=== PATIENT | male | born 1950 | race Caucasian/White ===

== ENCOUNTER → 2018-05-15 | Outpatient (CLI) | payer OTHER ==
[~2018-05-15] MED LIST: AMLO10 PO; ATOR40TA PO; Augmentin 875-1 EACH PO; BUSP10 PO; CITA20 PO; CYCL10 PO; D3-20002000 UNIT PO; DICL25ER PO; FISH OIL 1,0001 EAC1 PO; GABA300 PO; HYDCHL25 PO; INSULANPEN SC; LO-DOSE ASPIRIN81 MG PO; Lopressor 25 mg25 MG PO; METF500 PO; METO25 PO; OMEPRAZOLE20 MG PO; SACC250C PO; ZESTRIL40 MG PO
== END | disposition home or self-care (01) ==
LOC: LAB 14:15 → LAB SHORT 14:15
DX: L03.113 Cellulitis of right upper limb (principal)
CPT/HCPCS: 87070; 87075; 87205

== ENCOUNTER 2018-05-17 08:43 | Inpatient (IN) | payer OTHER ==
[~2018-05-17] VITALS: Ht 172.7 cm; Wt 97.8 kg
[2018-05-17 09:44] LABS: BASOPHILS ABSOLUTE AUTO 0.09 K/mm3 (0.00-0.23); BASOPHILS PERCENT AUTO 0 % (0-2); EOSINOPHILS ABSOLUTE AUTO 0.06 K/mm3 (0.00-0.68); EOSINOPHILS PERCENT AUTO 0 % (0-6); Hematocrit 29.2 % (37.0-53.0); Hemoglobin 9.5 g/dL (13.5-17.5); IMMATURE GRAN ABSOLUTE AUTO 0.64 K/mm3 (0.00-0.10); IMMATURE GRAN PERCENT AUTO 2 % (0-1); LYMPHOCYTES PERCENT AUTO 9 % (21-46); MONOCYTES ABSOLUTE AUTO 1.44 K/mm3 (0.16-1.47); MONOCYTES PERCENT AUTO 5 % (4-13); Mean Corpuscular HGB 24.7 pg (26.0-34.0); Mean Corpuscular HGB Conc 32.5 g/dL (31.5-36.5); Mean Corpuscular Volume 76 fL (80-100); Mean Platelet Volume 10.4 fL (9.1-12.4); NEUTROPHILS ABSOLUTE AUTO 24.17 K/mm3 (1.96-9.15); NEUTROPHILS PERCENT AUTO 83 % (41-73); Platelet Count 414 K/mm3 (150-400); RDW Coefficient Variation 16.9 % (11.7-14.2); RDW Standard Deviation 45.3 fL (35.1-46.3); Red Blood Cell Count 3.85 M/mm3 (4.30-5.90)
[2018-05-17 10:07] LABS: Alanine Aminotransfer (ALT/SGP 66 U/L (12-78); Albumin, Blood 2.2 g/dL (3.4-5.0); Albumin/Globulin Ratio 0.4 (0.8-1.8); Alk Phos 339 U/L (50-136); Anion Gap 11 mmol/L (6-16); Aspartate Aminotrans (AST/SGOT 41 U/L (12-37); Bilirubin, Total 0.6 mg/dL (0.1-1.0); Blood Urea Nitrogen 25 mg/dL (8-24); Bun/Creatinine Ratio 24.3 (12.0-20.0); CO2, Blood 22 mmol/L (21-32); Calcium, Blood 8.9 mg/dL (8.5-10.1); Chloride, Blood 100 mmol/L (98-108); Creatinine, Blood 1.03 mg/dL (0.60-1.20); Globulin, Blood 5.8 g/dL (2.2-4.0); Glomerular Filtration Rate >60 (60-); Glucose, Blood 194 mg/dL (70-99); Potassium, Blood 3.8 mmol/L (3.5-5.5); Sodium, Blood 133 mmol/L (136-145)
[2018-05-17] MEDS ORDERED: CYCL10 PO ×2 (10:35)
[2018-05-17] MEDS ORDERED: DICL25ER PO ×2 (10:35)
[2018-05-17] MEDS ORDERED: METF500 PO ×2 (11:02)
[2018-05-17] MEDS ORDERED: ATOR40TA PO ×2 (11:03)
[2018-05-17] MEDS ORDERED: Lopressor 25 mg25 MG PO ×2 (11:03)
[2018-05-17] MEDS ORDERED: CITA20 PO ×2 (11:04)
[2018-05-17] MEDS ORDERED: BUSP10 PO ×2 (11:04)
[2018-05-17] MEDS ORDERED: HYDCHL25 PO ×2 (11:04)
[2018-05-17] MEDS ORDERED: GABA300 PO ×4 (11:04→12:00)
[2018-05-17] MEDS ORDERED: ZESTRIL40 MG PO ×2 (11:05)
[2018-05-17] MEDS ORDERED: AMLO10 PO ×2 (11:05)
[2018-05-17] MEDS ORDERED: OMEPRAZOLE20 MG PO ×2 (11:05)
[2018-05-17] MEDS ORDERED: D3-20002000 UNIT PO ×2 (11:06)
[2018-05-17] MEDS ORDERED: METO25 PO ×2 (11:58)
[2018-05-17 12:22] LABS: Body Fluid Crystals NEG (NEGATIVE)
[2018-05-17] MEDS ORDERED: FISH OIL 1,0001 EAC1 PO ×2 (12:27)
[2018-05-17] MEDS ORDERED: LO-DOSE ASPIRIN81 MG PO ×2 (12:27)
[2018-05-17] MEDS ORDERED: INSULANPEN SC ×2 (12:28)
[2018-05-17 12:30] LABS: Appearance, Synovial Fluid Cloudy (Clear); Color, Synovial Fluid Dark Yellow (None-P Yel)
[2018-05-17 12:31] LABS: RBC Count, Synovial Fluid 4100 /mm3 (0-0)
[2018-05-17 12:34] LABS: WBC Count, Synovial Fluid 37300 /mm3 (0-180)
[2018-05-17 12:57] LABS: Lymphs, Synovial Fluid 9 % (0-15); Monocytes/Macrophages, Synovia 3 % (0-65); Neutrophils, Synovial Fluid 88 % (0-24)
--- NOTE | 2018-05-17 13:25 | NUR ---
REPORT FROM IGNACIO AYALA IN ER.
--- NOTE | 2018-05-17 13:45 | NUR ---
ER STAFF AWARE THAT ROOM IS READY. MAY SEND PT.
--- NOTE | 2018-05-17 14:13 | NUR ---
PT TO ROOM 336 VIA GURNEY. PT ARRIVES TO UNIT ALERT AND ORIENTED. ABX INFUSING W/O ISSUE. PT DENIES PAIN AT THIS TIME. ORIENTED PT TO ROOM AND CALL LIGHT.
--- NOTE | 2018-05-17 15:08 | NUR ---
PT MEDICATED PER EMAR. IVF STARTED. ZOSYN STARTED. PT C/O PAIN, WILL MEDICATE WITH PRN.
--- NOTE | 2018-05-17 16:15 | NUR ---
PT APPEARS TO BE SLEEPING, NADN. RESP EVEN AND NON LABORED.
--- NOTE | 2018-05-17 17:30 | NUR ---
PT MEDICATED PER EMAR. CHANGED PT INTO GOWN. ADJUSTED PT THERMOSTAT. DENIES PAIN.
--- NOTE | 2018-05-17 17:48 | NUR ---
DINNER TRAY PROVIDED TO PT. PT SITTING UP IN BED EATING AND WATCHING TV.
--- NOTE | 2018-05-17 19:08 | NUR ---
REPORT TO YEYO AYALA.
--- NOTE | 2018-05-18 05:23 | NUR ---
*SHIFT SUMMARY* PT IS ALERT AND ORIENTED. ON ROOM AIR. PATIENT IS RECIEVING NORMAL SALINE AT 75ML/HR. PATIENT INDEPENDENT IN ROOM, USES URINAL AT NIGHT. USES CALL LIGHT APPROPRIATELY. PT DENIES HAVING PAIN DURING SHIFT. RIGHT ARM ELEVATED ON PILLOW. ICE PACK ON TO HELP COOL PT. PLAN IS FOR ORTHO TO CHECK ON PT AND EVALUATE IF HE NEEDS TO HAVE SURGICAL INTERVENTION. PT HAS BEEN NPO SINCE MIDNIGHT.
[2018-05-18 05:43] LABS: BASOPHILS ABSOLUTE AUTO 0.06 K/mm3 (0.00-0.23); BASOPHILS PERCENT AUTO 0 % (0-2); EOSINOPHILS ABSOLUTE AUTO 0.09 K/mm3 (0.00-0.68); EOSINOPHILS PERCENT AUTO 0 % (0-6); Hematocrit 28.2 % (37.0-53.0); IMMATURE GRAN ABSOLUTE AUTO 0.23 K/mm3 (0.00-0.10); IMMATURE GRAN PERCENT AUTO 1 % (0-1); LYMPHOCYTES ABSOLUTE AUTO 2.56 K/mm3 (0.84-5.20); LYMPHOCYTES PERCENT AUTO 13 % (21-46); MONOCYTES ABSOLUTE AUTO 1.01 K/mm3 (0.16-1.47); MONOCYTES PERCENT AUTO 5 % (4-13); Mean Corpuscular HGB 24.6 pg (26.0-34.0); Mean Corpuscular HGB Conc 31.9 g/dL (31.5-36.5); Mean Corpuscular Volume 77 fL (80-100); Mean Platelet Volume 10.2 fL (9.1-12.4); NEUTROPHILS ABSOLUTE AUTO 16.23 K/mm3 (1.96-9.15); NEUTROPHILS PERCENT AUTO 81 % (41-73); Platelet Count 371 K/mm3 (150-400); RDW Coefficient Variation 16.6 % (11.7-14.2); RDW Standard Deviation 46.5 fL (35.1-46.3); Red Blood Cell Count 3.66 M/mm3 (4.30-5.90); White Blood Cell Count 20.18 K/mm3 (4.00-11.30)
[2018-05-18 06:07] LABS: Alanine Aminotransfer (ALT/SGP 51 U/L (12-78); Albumin, Blood 1.9 g/dL (3.4-5.0); Albumin/Globulin Ratio 0.4 (0.8-1.8); Alk Phos 283 U/L (50-136); Anion Gap 7 mmol/L (6-16); Aspartate Aminotrans (AST/SGOT 41 U/L (12-37); Bilirubin, Total 0.7 mg/dL (0.1-1.0); Blood Urea Nitrogen 22 mg/dL (8-24); Bun/Creatinine Ratio 22.1 (12.0-20.0); CO2, Blood 26 mmol/L (21-32); Calcium, Blood 8.6 mg/dL (8.5-10.1); Chloride, Blood 105 mmol/L (98-108); Globulin, Blood 4.9 g/dL (2.2-4.0); Glomerular Filtration Rate >60 (60-); Glucose, Blood 179 mg/dL (70-99); Potassium, Blood 3.6 mmol/L (3.5-5.5); Sodium, Blood 138 mmol/L (136-145); Total Protein, Blood 6.8 g/dL (6.4-8.2)
--- NOTE | 2018-05-18 18:18 | NUR ---
HE HAS KEPT HIS R ARM ELEVATED ON 2 PILLOWS ALL DAY. HE HAS USED THE ICE PACK OFF AND ON ALL DAY. HE TOOK A DEEP NAP 1/2 THE AFTERNOON. TORADOL WAS GIVEN X1 WITH RELIEF OF PAIN. HE HAS REDNESS IN HIS R ELBOW AND UPPER ARM. VSS.TEDS ON. SLIDING SCALE INSULIN STARTED AT DINNER FOR CBG'S GREATER THAN 150. WBC'S CAME DOWN TODAY. HE IS WITHIN THE FLUID RESTRICTION.
--- NOTE | 2018-05-19 04:44 | NUR ---
SHIFT SUMMARY PT HAD BM DURING THE NIGHT, SLEPT WELL. IV VANCO TROUGH 19 SO 0100 IV VANCO HELD PER PHARMACY AND DOSE ADJUSTED. NO ACUTE EVENTS NOTED DURING THE NIGHT, WILL CONTINUE TO MONITOR.
[2018-05-19 06:29] LABS: BASOPHILS ABSOLUTE AUTO 0.07 K/mm3 (0.00-0.23); BASOPHILS PERCENT AUTO 0 % (0-2); EOSINOPHILS ABSOLUTE AUTO 0.07 K/mm3 (0.00-0.68); EOSINOPHILS PERCENT AUTO 0 % (0-6); Hematocrit 28.5 % (37.0-53.0); IMMATURE GRAN ABSOLUTE AUTO 0.17 K/mm3 (0.00-0.10); IMMATURE GRAN PERCENT AUTO 1 % (0-1); LYMPHOCYTES PERCENT AUTO 13 % (21-46); MONOCYTES ABSOLUTE AUTO 0.79 K/mm3 (0.16-1.47); MONOCYTES PERCENT AUTO 4 % (4-13); Mean Corpuscular HGB 24.6 pg (26.0-34.0); Mean Corpuscular HGB Conc 31.6 g/dL (31.5-36.5); Mean Corpuscular Volume 78 fL (80-100); Mean Platelet Volume 11.1 fL (9.1-12.4); NEUTROPHILS ABSOLUTE AUTO 14.86 K/mm3 (1.96-9.15); NEUTROPHILS PERCENT AUTO 81 % (41-73); Platelet Count 442 K/mm3 (150-400); RDW Coefficient Variation 16.9 % (11.7-14.2); RDW Standard Deviation 47.5 fL (35.1-46.3); Red Blood Cell Count 3.66 M/mm3 (4.30-5.90); White Blood Cell Count 18.36 K/mm3 (4.00-11.30)
[2018-05-19 07:00] LABS: Albumin, Blood 2.1 g/dL (3.4-5.0); Anion Gap 9 mmol/L (6-16); Blood Urea Nitrogen 29 mg/dL (8-24); Bun/Creatinine Ratio 28.2 (12.0-20.0); CO2, Blood 24 mmol/L (21-32); Calcium, Blood 8.7 mg/dL (8.5-10.1); Chloride, Blood 107 mmol/L (98-108); Creatinine, Blood 1.03 mg/dL (0.60-1.20); Glomerular Filtration Rate >60 (60-); Glucose, Blood 129 mg/dL (70-99); Phosphorus, Blood 2.8 mg/dL (2.5-4.9); Potassium, Blood 3.9 mmol/L (3.5-5.5); Sodium, Blood 140 mmol/L (136-145)
--- NOTE | 2018-05-19 16:01 | NUR ---
PATIENT A/OX4, UP INDEPENDENTLY IN HIS ROOM. REPORTS PORFIRIO HAS DECREASED IN R ARM AND REDNESS AND SWELLING CONTINUE TO IMPROVE. 20G IV TO L HAND WNL AND SL. ROCEPHIN DAILY TO TREAT CELLULITIS. PATIENT IS HOPING TO GO [place] IN AM. NO ACUTE CHANGES THIS SHIFT.
--- NOTE | 2018-05-20 05:13 | NUR ---
SHIFT SUMMARY PT HAS SLEPT WELL T/O NIGHT, RECEIVED IV TORADOL FOR PAIN AT HS. NO ACUTE EVENTS NOTED DURING THE NIGHT, WILL CONTINUE TO MONITOR.
[2018-05-20 05:49] LABS: BASOPHILS ABSOLUTE AUTO 0.05 K/mm3 (0.00-0.23); BASOPHILS PERCENT AUTO 0 % (0-2); EOSINOPHILS ABSOLUTE AUTO 0.15 K/mm3 (0.00-0.68); EOSINOPHILS PERCENT AUTO 1 % (0-6); Hematocrit 30.1 % (37.0-53.0); Hemoglobin 9.3 g/dL (13.5-17.5); IMMATURE GRAN ABSOLUTE AUTO 0.13 K/mm3 (0.00-0.10); IMMATURE GRAN PERCENT AUTO 1 % (0-1); LYMPHOCYTES ABSOLUTE AUTO 2.26 K/mm3 (0.84-5.20); LYMPHOCYTES PERCENT AUTO 17 % (21-46); MONOCYTES ABSOLUTE AUTO 0.78 K/mm3 (0.16-1.47); MONOCYTES PERCENT AUTO 6 % (4-13); Mean Corpuscular HGB 24.2 pg (26.0-34.0); Mean Corpuscular HGB Conc 30.9 g/dL (31.5-36.5); Mean Corpuscular Volume 78 fL (80-100); Mean Platelet Volume 10.5 fL (9.1-12.4); NEUTROPHILS ABSOLUTE AUTO 9.74 K/mm3 (1.96-9.15); NEUTROPHILS PERCENT AUTO 74 % (41-73); Platelet Count 431 K/mm3 (150-400); RDW Coefficient Variation 17.1 % (11.7-14.2); RDW Standard Deviation 47.8 fL (35.1-46.3); Red Blood Cell Count 3.84 M/mm3 (4.30-5.90); White Blood Cell Count 13.11 K/mm3 (4.00-11.30)
[2018-05-20] MEDS ORDERED: SACC250C PO ×2 (14:34)
[2018-05-20] MEDS ORDERED: Augmentin 875-1 EACH PO ×2 (14:35)
--- NOTE | 2018-05-20 15:03 | NUR ---
PT DISCHARGED AT 1450 WITH TO TRANSPORT. AOX4 AND COOPERATIVE OF ALL CARE. INDEPEDENT IN ROOM APPEARED READY TO GO HOME. APPOINTMENT ATTEMPTED TO BE SCHEDULED AT [place] FOR [place]CP, [place] STATED THEY WOULD CALL PT TO SCHEDULE APPOINTMENT. CALLED DR STINSON'S OFFICE AND THEY STATED THEY WOULD CALL AND SCHEDULE APPOINTMENT WITH PT. ALL PAPERWORK REVEIWED AND SIGNED EDUATIONAL MATERIAL SENT WITH PT. PT ESCORTED VIA WHEELCHAIR BY THIS MOTHERCRAFT NURSE.
== END 2018-05-20 15:03 | disposition home or self-care (01) | DRG 603 ==
LOC: ER 08:43 → MEDS 11:39 → ERHOLD 11:39 → MEDS 13:30
PROVIDERS: Emergency Medicine; Family Medicine; ADMIT Family Medicine
PROC: 0R9L3ZX Drainage of Right Elbow Joint, Percutaneous Approach, Diagnostic (ICD-10-PCS; principal; 2018-05-17)
DX: L03.113 Cellulitis of right upper limb (principal); E87.1 Hypo-osmolality and hyponatremia; M70.31 Other bursitis of elbow, right elbow; E11.9 Type 2 diabetes mellitus without complications; Z79.4 Long term (current) use of insulin; I10 Essential (primary) hypertension; I25.10 Atherosclerotic heart disease of native coronary artery without angina pectoris; E78.5 Hyperlipidemia, unspecified; F32.9 Major depressive disorder, single episode, unspecified; F41.9 Anxiety disorder, unspecified; D63.8 Anemia in other chronic diseases classified elsewhere; J44.9 Chronic obstructive pulmonary disease, unspecified; B95.61 Methicillin susceptible Staphylococcus aureus infection as the cause of diseases classified elsewhere; I25.2 Old myocardial infarction; F17.210 Nicotine dependence, cigarettes, uncomplicated; W19.XXXA Unspecified fall, initial encounter
CPT/HCPCS: 20606; 36415; 80053; 80069; 80202; 82947; 83605; 85025; 87070; 87075; 87077; 87147; 87186; 87205; 89051; 89060; 94760; 96365-59; 96375-59; 99285-25; J0690; J0696; J1644; J1815; J1885; J2270; J2543; J3370; J7030; J7050

== ENCOUNTER 2021-04-27 16:55 | Inpatient (IN) | payer OTHER ==
[~2021-04-27] VITALS: Ht 175.3 cm; Wt 83.2 kg
[~2021-04-27 16:55] MED LIST changes: +ASPIR 8181 M1 PO; -D3-20002000 UNIT PO; -FISH OIL 1,0001 EAC1 PO; -LO-DOSE ASPIRIN81 MG PO; +OMEGA-3 FISH O1 EA13 PO; +THERA-D2000 UNIT PO
[2021-04-27 18:14] LABS: Influenza A, PCR NEGATIVE (NEGATIVE); Influenza B, PCR NEGATIVE (NEGATIVE); Resp Syncytial Virus, PCR NEGATIVE (NEGATIVE); SARS-Cov-2 (COVID-19) PCR, MMC NEGATIVE (NEGATIVE)
--- NOTE | 2021-04-28 00:29 | NUR ---
PATIENT IS A NEW ADMIT FROM THE ED. AXOX 4 AND SELF TRANSFER FROM [facility] TO BED. ON ROOM AIR. IV VANCO INFUSING FROM THE ED. CBG 274. REPORTS NO TEETH AND ABDOMINAL HERNIA. SCATTER SCABS ON FEET/TOES. FEET N/T WITH HX T2DM. CEDS ONE 1/2 PACK/DAY X 50 YEARS. ABSCESS BACK OF NECK WITH BANDAGE IN PLACE FROM DRAINED IN ED. REPORTS CHRONIC LEFT HIP PAIN AND ABSCESS JUST SORE. ORIENTED TO ROOM AND CALL LIGHT SYSTEM. REPORTS WANTS TO SLEEP AFTER ASSESSMENT. CALL LIGHT IN REACH.
[2021-04-28] MEDS ORDERED: CEPH500 PO (00:44)
[2021-04-28] MEDS ORDERED: ZYRTEC10 M2 PO (00:45)
[2021-04-28] MEDS ORDERED: DULO30 PO (00:45)
[2021-04-28] MEDS ORDERED: GUAI600T33 PO (00:46)
[2021-04-28] MEDS ORDERED: TRAM50 PO (00:49)
--- NOTE | 2021-04-28 04:20 | NUR ---
SHIFT SUMMARY PATIENT HAD NO ACUTE CHANGES. AXO X 4 AND SBA W/FWW TO BR. ON ROOM AIR. CBG 279. PIV REMAINS INTACT. IV ABX INFUSED. VSS/AFEBRILE. REPORTED BACK PAIN AND ULTRAM 50 MG GIVEN PER EMAR. DENIES SOB AND N/V. USES URINAL AT BEDSIDE. 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 ABDOMINAL HERNIA. SCABS ON TOES. REPORTS ABSCESS ON BACK OF NECK IS JUST SORE. LIVES WITH IN A TRAILER ON [employer] IN [facility]. COOPERATIVE WITH CARE. CALL LIGHT IN REACH. BED IN LOWEST POSITION. WILL CONTINUE TO MONITOR UNTIL DAY SHIFT NURSE ASSUMES CARE.
[2021-04-28 05:18] LABS: Hematocrit 36.2 % (37.0-53.0); Hemoglobin 12.8 g/dL (13.5-17.5); Mean Corpuscular HGB 30.3 pg (26.0-34.0); Mean Corpuscular HGB Conc 35.4 g/dL (31.5-36.5); Mean Corpuscular Volume 86 fL (80-100); Mean Platelet Volume 10.2 fL (9.1-12.4); Platelet Count 354 K/mm3 (150-400); RDW Coefficient Variation 12.7 % (11.7-14.2); RDW Standard Deviation 39.5 fL (35.1-46.3); Red Blood Cell Count 4.22 M/mm3 (4.30-5.90); White Blood Cell Count 15.65 K/mm3 (4.00-11.30)
[2021-04-28 05:44] LABS: Anion Gap 8 mmol/L (6-16); Blood Urea Nitrogen 17 mg/dL (8-24); Bun/Creatinine Ratio 27.2 (12.0-20.0); CO2, Blood 32 mmol/L (21-32); Calcium, Blood 8.9 mg/dL (8.5-10.1); Chloride, Blood 98 mmol/L (98-108); Creatinine, Blood 0.63 mg/dL (0.60-1.20); Glomerular Filtration Rate >60 (60-); Glucose, Blood 238 mg/dL (70-99); Potassium, Blood 2.3 mmol/L (3.5-5.5); Sodium, Blood 138 mmol/L (136-145)
--- NOTE | 2021-04-28 06:10 | NUR ---
CRITICAL LAB: K+ 2.[address] NICOLE REPORTS HE WILL PUT IN ORDERS.
--- NOTE | 2021-04-28 18:53 | NUR ---
SHIFT SUMMARY PT IS A&O, PLEASANT AND CO-OP. ADMITTED FOR SOFT TISSUE ABSCESS ON BACK OF NECK AND R ELBOW. DR ROJAS IN TO SEE PT. CT ORDERED AND DONE. IV ABX ADMINISTERED PER EMAR. PT MEDICATED FOR C/O BACK PAIN. IV KCL AND PO POTASSIUM GIVEN PER EMAR. ICE PACKS GIVEN FOR BACK; PT REPORTED THEM VERY EFFECTIVE. RESTING QUIETLY AT THIS TIME. DENIED FURTHER NEEDS. CALL LT IN REACH.
[2021-04-28 21:26] LABS: Vancomycin, Trough 13.8 ug/mL (5.0-10.0)
--- NOTE | 2021-04-29 04:06 | NUR ---
SHIFT SUMMARY PATIENT HAD NO ACUTE CHANGES. AXOX 4 AND USES URINAL AT BEDSIDE. REPORTED BACK PAIN X ONE AND ULTRAM GIVEN PER EMAR. ICE BAG ALSO USED WITH GOOD EFFECT. POWERGLIDE INTACT. IV ABXS INFUSED. CBG 227. DENIES SOB AND N/V. VSS/AFEBRILE. COOPERATIVE WITH CARE. CALL LIGHT IN REACH. BED IN LOWEST POSITION. WILL CONTINUE TO MONITOR UNTIL DAY SHIFT NURSE ASSUMES CARE.
[2021-04-29 06:23] LABS: BASOPHILS ABSOLUTE AUTO 0.04 K/mm3 (0.00-0.23); BASOPHILS PERCENT AUTO 0 % (0-2); EOSINOPHILS ABSOLUTE AUTO 0.07 K/mm3 (0.00-0.68); EOSINOPHILS PERCENT AUTO 1 % (0-6); Hematocrit 37.4 % (37.0-53.0); Hemoglobin 13.5 g/dL (13.5-17.5); IMMATURE GRAN ABSOLUTE AUTO 0.07 K/mm3 (0.00-0.10); IMMATURE GRAN PERCENT AUTO 1 % (0-1); LYMPHOCYTES ABSOLUTE AUTO 2.04 K/mm3 (0.84-5.20); LYMPHOCYTES PERCENT AUTO 14 % (21-46); MONOCYTES ABSOLUTE AUTO 0.85 K/mm3 (0.16-1.47); MONOCYTES PERCENT AUTO 6 % (4-13); Mean Corpuscular HGB 30.9 pg (26.0-34.0); Mean Corpuscular HGB Conc 36.1 g/dL (31.5-36.5); Mean Corpuscular Volume 86 fL (80-100); NEUTROPHILS ABSOLUTE AUTO 12.08 K/mm3 (1.96-9.15); NEUTROPHILS PERCENT AUTO 80 % (41-73); Platelet Count 377 K/mm3 (150-400); RDW Coefficient Variation 12.6 % (11.7-14.2); RDW Standard Deviation 39.8 fL (35.1-46.3); Red Blood Cell Count 4.37 M/mm3 (4.30-5.90); White Blood Cell Count 15.15 K/mm3 (4.00-11.30)
[2021-04-29 06:30] LABS: Anion Gap 6 mmol/L (6-16); Blood Urea Nitrogen 19 mg/dL (8-24); Bun/Creatinine Ratio 29.5 (12.0-20.0); CO2, Blood 31 mmol/L (21-32); Calcium, Blood 9.2 mg/dL (8.5-10.1); Chloride, Blood 100 mmol/L (98-108); Creatinine, Blood 0.65 mg/dL (0.60-1.20); Glomerular Filtration Rate >60 (60-); Glucose, Blood 225 mg/dL (70-99); Potassium, Blood 2.9 mmol/L (3.5-5.5); Sodium, Blood 137 mmol/L (136-145)
--- NOTE | 2021-04-29 15:08 | NUR ---
SHIFT SUMMARY PT IS A&O, PLEASANT AND CO-OP WITH CARE. INDEPENDENT IN TO BTHRM. C/O TRACEY SINCE ADMISSION, AT THE START OF SHIFT. DR MEYER NOTIFIED FOR TYLENOL. PT LATER REPORTED TRACEY REMAINED. PT REPORTED PAIN AND SWELLING TO SCROTUM. DR MEYER UPDATED. TORADOL GIVEN PER EMAR. DR MEYER IN TO SEE PT, DISCUSSED PLAN OF CARE. ADDITIONAL PAIN MEDICATION ORDERED AND GIVEN. PT REPORTED IT EFFECTIVE FOR TRACEY. PT REPORTED SCROTUM PAIN AND SWELLING SLIGHTLY IMPROVED FROM YESTERDAY, BUT STILL PRETTY MISERABLE. IV ABX ADMINISTERED PER EMAR. PT HAVING LOTS OF VISITORS TODAY. UP TO SHOWER INDEPENDENTLY. CALL LT IN REACH. ABLE TO MAKE NEEDS KNOWN.
--- NOTE | 2021-04-29 15:48 | NUR ---
SHIFT SUMMARY PT IS A&O, PLEASANT AND CO-OP WITH CARE. UP INDEPENDENTLY TO CHAIR AT BS. USES URINAL INDEPENDENTLY. REPORTS INFECTION AND SWELLING TO R ELBOW AND NECK IMPROVED WITH IV ABX. DR ELLIOTT IN TO SEE PT THIS AM, DISCUSSED PLAN OF CARE. DR ROJAS TO RETURN TODAY TO RE-EVALUATE R ELBOW FOR POSSIBLE I&D. DR ELLIOTT WAITING FOR CULTURES TO RETURN BEFORE D/C TO DETERMINE APPROPRIATE ABX. PT REPORTED BEING OK WITH THE WAIT, HE DOES NOT WANT THE INFECTION TO COME BACK OR GET WORSE IF HE GOES HOME. PT REQUESTED HOME MEDICATION, OXYCODONE FOR BACK PAIN. NEW ORDERS PLACED AND GIVEN. K+ LEVEL WNL'S; SEE CHART. PT REPORTED IT EFFECTIVE. DENIES FURTHER NEEDS AT THIS TIME. CALL LT IN REACH.
[2021-04-29 21:23] LABS: Vancomycin, Trough 18.8 ug/mL (5.0-10.0)
--- NOTE | 2021-04-30 05:19 | NUR ---
SHIFT SUMMARY PT IS A 70 Y/O MALE, ADMITTED FOR A SOFT TISSUE ABSCESS ON HIS NECK AND R ELBOW. NECK ABSCESS DRY WITH NO DRAINAGE NOTED, WITH SMALL AMOUNT OF CLEAR DRAINAGE NOTED FROM THE ELBOW. PT REPORTED SEVERE LOWER BACK PAIN AT 10/10, AND WAS MEDICATED WITH PRN PERCOCET TWICE. NO C/O NAUSEA OR SOB. VITAL SIGNS STABLE. NO ACUTE CHANGES IN PT CONDITION NOTED DURING THE NIGHT. WILL CONTINUE TO MONITOR AND TREAT PER EMAR UNTIL HAND OFF TO DAY SHIFT RN.
[2021-04-30 05:40] LABS: BASOPHILS ABSOLUTE AUTO 0.07 K/mm3 (0.00-0.23); BASOPHILS PERCENT AUTO 1 % (0-2); EOSINOPHILS PERCENT AUTO 1 % (0-6); Hemoglobin 13.5 g/dL (13.5-17.5); IMMATURE GRAN ABSOLUTE AUTO 0.07 K/mm3 (0.00-0.10); IMMATURE GRAN PERCENT AUTO 1 % (0-1); LYMPHOCYTES ABSOLUTE AUTO 2.89 K/mm3 (0.84-5.20); LYMPHOCYTES PERCENT AUTO 20 % (21-46); MONOCYTES ABSOLUTE AUTO 0.93 K/mm3 (0.16-1.47); MONOCYTES PERCENT AUTO 6 % (4-13); Mean Corpuscular HGB 30.7 pg (26.0-34.0); Mean Corpuscular HGB Conc 35.5 g/dL (31.5-36.5); Mean Corpuscular Volume 86 fL (80-100); Mean Platelet Volume 9.9 fL (9.1-12.4); NEUTROPHILS ABSOLUTE AUTO 10.36 K/mm3 (1.96-9.15); NEUTROPHILS PERCENT AUTO 72 % (41-73); Platelet Count 369 K/mm3 (150-400); RDW Coefficient Variation 12.6 % (11.7-14.2); White Blood Cell Count 14.42 K/mm3 (4.00-11.30)
[2021-04-30 05:51] LABS: Anion Gap 6 mmol/L (6-16); Blood Urea Nitrogen 19 mg/dL (8-24); Bun/Creatinine Ratio 28.3 (12.0-20.0); CO2, Blood 30 mmol/L (21-32); Calcium, Blood 9.6 mg/dL (8.5-10.1); Chloride, Blood 102 mmol/L (98-108); Creatinine, Blood 0.67 mg/dL (0.60-1.20); Glomerular Filtration Rate >60 (60-); Glucose, Blood 164 mg/dL (70-99); Potassium, Blood 3.3 mmol/L (3.5-5.5); Sodium, Blood 138 mmol/L (136-145)
--- NOTE | 2021-04-30 17:19 | NUR ---
SHIFT SUMMARY PATIENT MEDICATED FOR PAIN X2. PATIENT DENIES NAUSEA AND SHORTNESS OF BREATH. PATIENT IS IND IN ROOM. ORDERS FOR MRI, PAPERWORK DONE AND FAXED BACK TO MRI. PATIENT IS ANXIOUS TO GO HOME. PATIENT IS ALSO ANXIOUS TO GET PATIENT HOME. PATIENT IS EATING AND DRINKING WELL. PATIENT REPORTS NO PAIN IN NECK OR ELBOW WHERE ABCESS IS. PATIENT IS PLEASANT AND COOPERATIVE WITH CARE.
[2021-05-01 06:02] LABS: Anion Gap 7 mmol/L (6-16); Blood Urea Nitrogen 22 mg/dL (8-24); Bun/Creatinine Ratio 28.9 (12.0-20.0); CO2, Blood 29 mmol/L (21-32); Calcium, Blood 10.1 mg/dL (8.5-10.1); Chloride, Blood 100 mmol/L (98-108); Creatinine, Blood 0.76 mg/dL (0.60-1.20); Glomerular Filtration Rate >60 (60-); Glucose, Blood 198 mg/dL (70-99); Potassium, Blood 3.9 mmol/L (3.5-5.5); Sodium, Blood 136 mmol/L (136-145)
--- NOTE | 2021-05-01 06:32 | NUR ---
SHIFT SUMMARY PT IS A 70 Y/O MALE, ADMITTED FOR SOFT TISSUE ABSCESS ON HIS NECK AND R ELBOW. A&O X 4, INDEPENDENT IN THE ROOM. VITAL SIGNS STABLE. HE WAS MEDICATED FOR CHRONIC BACK PAIN TWICE DURING THE NIGHT WITH PRN OXYCODONE AND ONCE WITH TRAMADOL. NO C/O NAUSEA OR SOB. VITAL SIGNS STABLE. NO ACUTE CHANGES IN PT CONDITION NOTED DURING THE NIGHT. WILL CONTINUE TO MONITOR AND TREAT PER EMAR UNTIL HAND OFF TO DAY SHIFT RN.
[2021-05-02 05:36] LABS: BASOPHILS PERCENT AUTO 1 % (0-2); EOSINOPHILS ABSOLUTE AUTO 0.18 K/mm3 (0.00-0.68); EOSINOPHILS PERCENT AUTO 2 % (0-6); Hematocrit 37.8 % (37.0-53.0); Hemoglobin 13.1 g/dL (13.5-17.5); IMMATURE GRAN ABSOLUTE AUTO 0.04 K/mm3 (0.00-0.10); IMMATURE GRAN PERCENT AUTO 0 % (0-1); LYMPHOCYTES ABSOLUTE AUTO 2.71 K/mm3 (0.84-5.20); LYMPHOCYTES PERCENT AUTO 23 % (21-46); MONOCYTES ABSOLUTE AUTO 0.85 K/mm3 (0.16-1.47); MONOCYTES PERCENT AUTO 7 % (4-13); Mean Corpuscular HGB Conc 34.7 g/dL (31.5-36.5); Mean Corpuscular Volume 89 fL (80-100); Mean Platelet Volume 9.9 fL (9.1-12.4); NEUTROPHILS ABSOLUTE AUTO 8.12 K/mm3 (1.96-9.15); NEUTROPHILS PERCENT AUTO 68 % (41-73); Platelet Count 355 K/mm3 (150-400); RDW Standard Deviation 41.7 fL (35.1-46.3); Red Blood Cell Count 4.23 M/mm3 (4.30-5.90)
[2021-05-02 05:56] LABS: Anion Gap 5 mmol/L (6-16); Blood Urea Nitrogen 28 mg/dL (8-24); Bun/Creatinine Ratio 31.4 (12.0-20.0); CO2, Blood 30 mmol/L (21-32); Calcium, Blood 9.6 mg/dL (8.5-10.1); Chloride, Blood 103 mmol/L (98-108); Creatinine, Blood 0.89 mg/dL (0.60-1.20); Glomerular Filtration Rate >60 (60-); Glucose, Blood 170 mg/dL (70-99); Potassium, Blood 4.2 mmol/L (3.5-5.5); Sodium, Blood 138 mmol/L (136-145)
--- NOTE | 2021-05-02 06:46 | NUR ---
SHIFT SUMMARY PT IS A 70 Y/O MALE, ADMITTED FOR NECK AND R ELBOW SOFT TISSUE ABSCESS. HE IS A&O X 4, INDEPENDENT IN THE ROOM. VITAL SIGNS STABLE. PT MEDICATED TWICE FOR CHRONIC BACK PAIN WITH PRN PERCOCET. NO C/O ACUTE NAUSEA OR SOB. NO OTHER ACUTE CHANGES IN PT CONDITION NOTED DURING THE NIGHT. WILL CONTINUE TO MONITOR AND TREAT PER EMAR UNTIL HAND OFF TO DAY SHIFT RN.
--- NOTE | 2021-05-02 14:51 | NUR ---
DRESSING AT BACK OF NECK CHANGED. NO S/S OF INFECTION NOTED, SMALL 1/2" LONG INCISION. CLEANED AND COVERED WITH BANDAGE.
--- NOTE | 2021-05-02 17:09 | NUR ---
PATIENT DECLINED [facility] PATIENT INFORMED BED AT [facility] MAY BECOME AVAILABLE AND DOCTOR TO DOCTOR COMMUNCATION IN PROGRESS. PATIENT STATED HE DID NOT WANT TO TRANSFER. PATIENT EDUCATED THAT A BED MAY NOT BECOME AVAILABLE AGAIN. PATIENT CALLED HIS AND DISCUSSED SITUTATION. THEY CONFIRMED THAT THEY DECLINE THE TRANSFER.
--- NOTE | 2021-05-03 04:51 | NUR ---
PT IS ASLEEP THIS MORNING. PT IS ALERT AND ORIENTED X4, ON RA NO C/O SOB, NOT MONITORED, PT IS INDEPENDENT IN THE ROOM WITH FWW, NO N/V DURING SHIFT. PT DID COMPLAIN OF PAIN IN LOWER EXTREMITIES AND BACK, MEDICATED PER EMAR. PT BS WAS 102 LAST NIGHT, NOTIFIED MD ORDERS TO GIVE 15 UNITS LANTUS RATHER THAN THE 48 UNITS ORDERED. OTHERWISE NO ACUTE EVENTS OVERNIGHT, PT CALL LIGHT AND BELONGINGS WITHIN REACH.
[2021-05-03 05:22] LABS: BASOPHILS ABSOLUTE AUTO 0.07 K/mm3 (0.00-0.23); BASOPHILS PERCENT AUTO 1 % (0-2); EOSINOPHILS ABSOLUTE AUTO 0.16 K/mm3 (0.00-0.68); EOSINOPHILS PERCENT AUTO 1 % (0-6); Hematocrit 41.4 % (37.0-53.0); Hemoglobin 14.1 g/dL (13.5-17.5); IMMATURE GRAN ABSOLUTE AUTO 0.06 K/mm3 (0.00-0.10); IMMATURE GRAN PERCENT AUTO 0 % (0-1); LYMPHOCYTES ABSOLUTE AUTO 2.93 K/mm3 (0.84-5.20); LYMPHOCYTES PERCENT AUTO 21 % (21-46); MONOCYTES ABSOLUTE AUTO 0.98 K/mm3 (0.16-1.47); MONOCYTES PERCENT AUTO 7 % (4-13); Mean Corpuscular HGB 30.3 pg (26.0-34.0); Mean Corpuscular HGB Conc 34.1 g/dL (31.5-36.5); Mean Corpuscular Volume 89 fL (80-100); Mean Platelet Volume 9.9 fL (9.1-12.4); NEUTROPHILS PERCENT AUTO 70 % (41-73); Platelet Count 378 K/mm3 (150-400); RDW Coefficient Variation 12.9 % (11.7-14.2); RDW Standard Deviation 41.6 fL (35.1-46.3); Red Blood Cell Count 4.66 M/mm3 (4.30-5.90)
[2021-05-03 05:41] LABS: Anion Gap 9 mmol/L (6-16); Blood Urea Nitrogen 27 mg/dL (8-24); Bun/Creatinine Ratio 29.5 (12.0-20.0); CO2, Blood 27 mmol/L (21-32); Calcium, Blood 9.5 mg/dL (8.5-10.1); Chloride, Blood 102 mmol/L (98-108); Creatinine, Blood 0.91 mg/dL (0.60-1.20); Glomerular Filtration Rate >60 (60-); Glucose, Blood 201 mg/dL (70-99); Sodium, Blood 138 mmol/L (136-145)
--- NOTE | 2021-05-03 10:55 | NUR ---
PATIENT ALERT AND ORIENTED X 4, ON RA NO C/O SOB, INDEPENDENT IN HIS ROOM WITH WALKER. BG ACHS WITH INSULIN PWE S/S. DENIES PAIN TO BACK AT THIS TIME. PATIENT REFUSED US CYST ASPIRATION EXAM THIS MORNING AND RERQUESTED TO BE DISCHARGE, DR. SINGLETON AWARE.
== END 2021-05-03 11:08 | disposition left against medical advice (07) | DRG 96 ==
LOC: ER 16:55 → MEDS 16:56 → ENPENDDIS 04-29 08:18 → MEDS 05-03 11:08
PROVIDERS: Family Medicine; Student in an Organized Health Care Education/Training Program; ADMIT Internal Medicine
PROC: 0H96XZZ Drainage of Back Skin, External Approach (ICD-10-PCS; principal; 2021-04-27)
DX: G06.1 Intraspinal abscess and granuloma (principal); E87.6 Hypokalemia; J44.9 Chronic obstructive pulmonary disease, unspecified; E78.5 Hyperlipidemia, unspecified; I25.10 Atherosclerotic heart disease of native coronary artery without angina pectoris; Z20.822 Contact with and (suspected) exposure to COVID-19; I10 Essential (primary) hypertension; I25.2 Old myocardial infarction; G89.29 Other chronic pain; F41.9 Anxiety disorder, unspecified; F32.A Depression, unspecified; F17.210 Nicotine dependence, cigarettes, uncomplicated; Z79.4 Long term (current) use of insulin; Z79.899 Other long term (current) drug therapy; Z79.82 Long term (current) use of aspirin; Z95.5 Presence of coronary angioplasty implant and graft; Z98.890 Other specified postprocedural states; E11.9 Type 2 diabetes mellitus without complications
CPT/HCPCS: 0241U; 10061; 36415; 70490; 70491; 70543; 80048; 80202; 82947; 84132; 85025; 85027; 87040; 87070; 87075; 87077; 87147; 87186; 87205; 96365; 96366; 96372; 96375; 99285-25; A9270; A9579; G0378; J0696; J1650; J1815; J3370; J3475; J3480; J7050; Q9967

== ENCOUNTER → 2023-10-09 | Outpatient (CLI) | payer OTHER ==
[~2023-10-09] MED LIST changes: +CEPH500 PO; +DULO30 PO; +GUAI600T33 PO; +TRAM50 PO; +ZYRTEC10 M2 PO
[2023-10-09 11:22] LABS: Creatinine Urine 40.2 mg/dL (27.00-270.00); Protein, Urine Quantitative 40.9 mg/dL (0.0-11.9)
[2023-10-14 01:40] LABS: ALPHA-1 %,URINE 3.4 %; ALPHA-2 %,URINE 1.8 %; BETA GLOBULIN %,URINE 10.6 %; GAMMA GLOBULIN %,URINE 4.2 %; HOURS COLLECTED Random hr; TOTAL VOLUME Random mL
== END | disposition home or self-care (01) ==
LOC: LAB 07:30 → LAB SHORT 07:30 → LAB FUT 10-03 12:50
PROVIDERS: Internal Medicine Nephrology
DX: N18.30 Chronic kidney disease, stage 3 unspecified (principal); D75.1 Secondary polycythemia; N25.81 Secondary hyperparathyroidism of renal origin; E55.9 Vitamin D deficiency, unspecified; E29.1 Testicular hypofunction; R76.9 Abnormal immunological finding in serum, unspecified; R94.5 Abnormal results of liver function studies; R94.6 Abnormal results of thyroid function studies
CPT/HCPCS: 81050; 82043; 82570; 84156; 84166; 86335